=== PATIENT | male | born 1940 | race Caucasian/White ===

== ENCOUNTER 2018-11-05 08:16 | Emergency (ER) | payer MEDICARE, OTHER ==
[~2018-11-05] VITALS: Ht 177.8 cm; Wt 90.9 kg
[2018-11-05] MEDS ORDERED: LIDOcaine 2% 10ml TOPICAL JELLY (Urojet) MM ONE (08:30)
[2018-11-05 09:09] LABS: CLARITY,URINE CLEAR (Clear); COLOR,URINE YELLOW (Yellow); GLUCOSE, URINE NEGATIVE (Neg); KETONES,URINE NEGATIVE (Neg); LEUKOCYTE ESTERASE ,URINE NEGATIVE (Neg); NITRITES, URINE NEGATIVE (Neg); OCCULT BLOOD,URINE MODERATE (Neg); PH,URINE 5.5 (4.8-8.0); PROTEIN,URINE NEGATIVE (Neg)
[2018-11-05 09:13] LABS: UA COLLECTION TYPE STRAIGHT CATH
[2018-11-05 09:15] LABS: MUCUS STRANDS FEW /LPF (Neg); SQUAMOUS EPITHELIAL CELL,UR FEW /LPF (FEW)
[2018-11-05 09:16] LABS: BACTERIA,URINE FEW /HPF (Neg); RBC,URINE 50-100 /HPF (0-2); WBC,URINE 0-4 /HPF (0-4)
[2018-11-05 09:18] LABS: ANION GAP 7 (8-16); BLOOD UREA NITROGEN 17 MG/DL (7-18); BUN/CREATININE RATIO 12.9 (5.4-32.0); CALCIUM 9.1 MG/DL (8.5-10.1); CHLORIDE 108 MMOL/L (99-107); CREATININE 1.32 MG/DL (0.60-1.10); GLUCOSE 114 MG/DL (70-104); POTASSIUM 4.2 MMOL/L (3.5-5.1); SODIUM 141 MMOL/L (135-145); TOTAL CARBON DIOXIDE 25.7 MMOL/L (24-32); eGFR 52 ML/MIN
[2018-11-05 09:33] VITALS: BP 136/101
== END 2018-11-05 09:47 | disposition home or self-care (01) ==
LOC: ER 08:17
DX: R33.9 Retention of urine, unspecified (principal); Z87.442 Personal history of urinary calculi
CPT/HCPCS: 36415; 51702; 80048; 81001; 99284

== ENCOUNTER 2018-11-07 09:21 | Emergency (ER) | payer MEDICARE, OTHER ==
[~2018-11-07] VITALS: Ht 177.8 cm; Wt 93.0 kg
[2018-11-07 09:36] VITALS: BP 150/93
[2018-11-07] MEDS ORDERED: FLO0.4C PO (21:23)
== END 2018-11-07 11:05 | disposition home or self-care (01) ==
LOC: ER 09:22
DX: R31.9 Hematuria, unspecified (principal); Z46.6 Encounter for fitting and adjustment of urinary device; Z87.442 Personal history of urinary calculi
CPT/HCPCS: 99281

== ENCOUNTER 2018-11-07 19:49 | Emergency (ER) | payer MEDICARE, OTHER ==
[~2018-11-07] VITALS: Ht 177.8 cm; Wt 93.0 kg
[2018-11-07 20:45] LABS: COLOR,URINE YELLOW (Yellow); GLUCOSE, URINE NEGATIVE (Neg); KETONES,URINE TRACE mg/dl (Neg); LEUKOCYTE ESTERASE ,URINE NEGATIVE (Neg); NITRITES, URINE NEGATIVE (Neg); OCCULT BLOOD,URINE LARGE (Neg); PROTEIN,URINE NEGATIVE (Neg)
[2018-11-07 20:50] LABS: BACTERIA,URINE FEW /HPF (Neg); CLARITY,URINE SLIGHTLY CLOUDY (Clear); RBC,URINE 50-100 /HPF (0-2); SQUAMOUS EPITHELIAL CELL,UR FEW /LPF (FEW); UA COLLECTION TYPE FOLEY CATH; WBC,URINE 0-4 /HPF (0-4)
[2018-11-07 21:20] VITALS: BP 142/97
[2018-11-07] MEDS ORDERED: FLO0.4C PO (21:23)
== END 2018-11-07 21:29 | disposition home or self-care (01) ==
LOC: ER 19:49
DX: R33.9 Retention of urine, unspecified (principal); Z79.899 Other long term (current) drug therapy; Z87.442 Personal history of urinary calculi
CPT/HCPCS: 51702; 81001; 99284

== ENCOUNTER 2018-11-13 06:25 | Inpatient (IN) | payer MEDICARE, OTHER ==
[~2018-11-13] VITALS: Ht 177.8 cm; Wt 92.7 kg
[~2018-11-13 06:25] MED LIST: FLO0.4C PO
[2018-11-13] MEDS ORDERED: LIDOcaine 2% 10ml TOPICAL JELLY (Urojet) MM ONE (06:40)
[2018-11-13] MEDS ORDERED: normal saline 1000ML IV soln IV ONE ×2 (06:50→07:20)
[2018-11-13] MEDS ORDERED: CefTRIAXone 2gm/D5W 50ml 50 ML IV ONE (06:50)
[2018-11-13] MEDS ORDERED: NITR100C6 PO (07:04)
[2018-11-13] MEDS ORDERED: FINA5TAB11 PO (07:04)
[2018-11-13] MEDS ORDERED: FLUT16SP2 BOTHNARES (07:04)
[2018-11-13] MEDS ORDERED: GUAI200T5 PO (07:07)
[2018-11-13 07:11] LABS: CLARITY,URINE CLOUDY (Clear); COLOR,URINE BROWN (Yellow)
[2018-11-13 07:13] LABS: UA COLLECTION TYPE STRAIGHT CATH
[2018-11-13] MEDS ORDERED: acetaminophen 325mg tablet PO ONE (07:15)
[2018-11-13 07:17] LABS: BACTERIA,URINE 2+ /HPF (Neg); RBC,URINE TNTC /HPF (0-2); SQUAMOUS EPITHELIAL CELL,UR NONE SEEN /LPF (FEW); WBC,URINE TNTC /HPF (0-4)
[2018-11-13 07:55] LABS: PARTIAL THROMBOPLASTIN TIME 29 SECONDS (22-32)
[2018-11-13 07:57] LABS: ALANINE AMINOTRANSFERASE 30 U/L (12-78); ALBUMIN 3.7 G/DL (3.4-5.0); ALKALINE PHOSPHATASE 89 IU/L (46-116); ANION GAP 9 (8-16); ASPARTATE AMINO TRANSFERASE 25 U/L (10-37); BILIRUBIN,TOTAL 1.7 MG/DL (0.1-1.0); BLOOD UREA NITROGEN 19 MG/DL (7-18); BUN/CREATININE RATIO 13.8 (5.4-32.0); CALCIUM 8.6 MG/DL (8.5-10.1); CHLORIDE 107 MMOL/L (99-107); CREATININE 1.38 MG/DL (0.60-1.10); GLUCOSE 121 MG/DL (70-104); MAGNESIUM 1.9 MG/DL (1.5-2.4); POTASSIUM 4.1 MMOL/L (3.5-5.1); SODIUM 139 MMOL/L (135-145); TOTAL CARBON DIOXIDE 23.5 MMOL/L (24-32); TOTAL PROTEIN 7.3 G/DL (6.4-8.2); eGFR 50 ML/MIN
[2018-11-13 07:58] LABS: BASOPHILS % (AUTO) 0 % (0-1); EOSINOPHILS % (AUTO) 0.1 % (0-6); HEMATOCRIT 41.9 % (42.0-52.0); HEMOGLOBIN 14.6 g/dl (14.0-17.9); LYMPHOCYTES # (AUTO) 0.2 X10'3 (1.1-4.8); LYMPHOCYTES % (AUTO) 2.8 % (21-51); MEAN CORPUSCULAR HEMOGLOBIN 31.9 PG (27.0-31.0); MEAN CORPUSCULAR HGB CONC 34.9 g/dL (33.0-36.5); MEAN CORPUSCULAR VOLUME 91.5 FL (78-98); MONOCYTES # (AUTO) 0.1 X10'3 (0-0.9); MONOCYTES % (AUTO) 1.2 % (2-12); NEUTROPHILS % (AUTO) 95.9 % (42-75); PLATELET COUNT 130 X10'3 (140-440); RED BLOOD COUNT 4.58 X10'6 (4.70-6.10); RED CELL DISTRIBUTION WIDTH 13.2 % (11.5-14.5); WHITE BLOOD COUNT 8.4 X10'3 (4.5-11.0)
--- NOTE | 2018-11-13 08:28 | NUR ---
pt looks and states he feels much better after catheter placement. pt has been sleeping off and on. pt's shivering has stopped.
[2018-11-13] MEDS ORDERED: magnesium 2GM in 50ml NS 50 ML IV PRN (11:25)
[2018-11-13] MEDS ORDERED: magnesium 4gm in 100ml NS 100 ML IV PRN (11:25)
[2018-11-13] MEDS ORDERED: acetaminophen 325mg tablet PO PRN (11:25)
[2018-11-13] MEDS ORDERED: magnesium hydroxide 30ml (MOM) UD suspension PO PRN (11:25)
[2018-11-13] MEDS ORDERED: ondansetron/PF 4mg/2ml inj IV PRN (11:25)
[2018-11-13] MEDS ORDERED: magnesium Cl slow-release 64mg tablet PO PRN (11:25)
[2018-11-13] MEDS ORDERED: potassium CL 10mEq/100ml bag 100 ML IV PRN (11:25)
[2018-11-13] MEDS ORDERED: mag hydrox/Alum hydrox/simeth 30ml oral suspension PO PRN (11:25)
[2018-11-13] MEDS ORDERED: potassium Cl 20 mEq SR tablet PO PRN ×2 (11:25)
[2018-11-13] MEDS ORDERED: potassium Cl 40MEQ/NS 500ml 500 ML IV PRN (11:25)
[2018-11-13] MEDS: normal saline 1000ml 1,000 ML IV SCH ×2 (11:56→21:21)
--- NOTE | 2018-11-13 13:19 | NUR ---
Attempted to call report to receiving nurse but unavailable; will call back.
--- NOTE | 2018-11-13 13:25 | NUR ---
Called ED to get report. Nurse is busy with another patient. They will call back.
--- NOTE | 2018-11-13 14:10 | NUR ---
Received patient report from TATIANA Sherwood. Patient to room 349 B. BLL, VSS, call light in reach of patient. Water provided to patient. Will continue to monitor patient.
[2018-11-13 14:30] VITALS: BP_SYST 82; BP_SYST 89; BP_DIAS 44; BP_DIAS 48
--- NOTE | 2018-11-13 18:29 | NUR ---
Patient in room [facility]. I have received report from Taina SIMPSON and had the opportunity to ask questions and assume patient care.
--- NOTE | 2018-11-13 18:29 | NUR ---
Problems reprioritized. Patient report given, questions answered & plan of care reviewed with TATIANA Esteves. Patient resting comfortably and just finished eating dinner at this time. Call light and items of frequent use in reach of patient.
[2018-11-13 19:00] VITALS: BP 92/53
[2018-11-13] MEDS: guaiFENesin ER 600mg tablet PO SCH (19:22)
[2018-11-13] MEDS: heparin, porcine 5000 units/ml vial SQ SCH (19:23)
[2018-11-14] VITALS: BP 90/50
[2018-11-14] MEDS: normal saline 1000ml 1,000 ML IV SCH ×2 (04:53→16:50)
[2018-11-14 05:38] LABS: BASOPHILS % (AUTO) 0.1 % (0-1); EOSINOPHILS % (AUTO) 0 % (0-6); HEMATOCRIT 34.3 % (42.0-52.0); HEMOGLOBIN 11.6 g/dl (14.0-17.9); LYMPHOCYTES # (AUTO) 0.6 X10'3 (1.1-4.8); LYMPHOCYTES % (AUTO) 4.2 % (21-51); MEAN CORPUSCULAR HEMOGLOBIN 31.1 PG (27.0-31.0); MEAN CORPUSCULAR HGB CONC 33.7 g/dL (33.0-36.5); MEAN CORPUSCULAR VOLUME 92.4 FL (78-98); MEAN PLATELET VOLUME 8.1 FL (7.4-10.4); MONOCYTES % (AUTO) 6.3 % (2-12); NEUTROPHILS # (AUTO) 13.8 X10'3 (1.8-7.7); NEUTROPHILS % (AUTO) 89.4 % (42-75); PLATELET COUNT 113 X10'3 (140-440); RED BLOOD COUNT 3.71 X10'6 (4.70-6.10); RED CELL DISTRIBUTION WIDTH 13.4 % (11.5-14.5); WHITE BLOOD COUNT 15.4 X10'3 (4.5-11.0)
[2018-11-14 06:08] LABS: ALANINE AMINOTRANSFERASE 20 U/L (12-78); ALBUMIN 2.5 G/DL (3.4-5.0); ALBUMIN/GLOBULIN RATIO 0.8 (1.1-1.5); ALKALINE PHOSPHATASE 59 IU/L (46-116); ANION GAP 10 (8-16); ASPARTATE AMINO TRANSFERASE 30 U/L (10-37); BILIRUBIN,TOTAL 1.5 MG/DL (0.1-1.0); BLOOD UREA NITROGEN 24 MG/DL (7-18); BUN/CREATININE RATIO 15.2 (5.4-32.0); CHLORIDE 105 MMOL/L (99-107); CREATININE 1.58 MG/DL (0.60-1.10); GLUCOSE 91 MG/DL (70-104); MAGNESIUM 1.6 MG/DL (1.5-2.4); POTASSIUM 3.7 MMOL/L (3.5-5.1); SODIUM 135 MMOL/L (135-145); TOTAL CARBON DIOXIDE 20.3 MMOL/L (24-32); TOTAL PROTEIN 5.8 G/DL (6.4-8.2); eGFR 43 ML/MIN
--- NOTE | 2018-11-14 06:27 | NUR ---
Problems reprioritized. Patient report given, questions answered & plan of care reviewed with Rashaad RN.
--- NOTE | 2018-11-14 06:30 | NUR ---
Patient in room [facility]. I have received report from MARTINA SIMPSON and had the opportunity to ask questions and assume patient care.
--- NOTE | 2018-11-14 06:30 | NUR ---
Patient in room [facility]. I have received report from Danielito SIMPSON and had the opportunity to ask questions and assume patient care.
[2018-11-14 07:22] VITALS: BP 93/54
[2018-11-14 07:51] LABS: PLATELET ESTIMATE DECREASED; TOTAL CELLS COUNTED 100
[2018-11-14 07:52] LABS: TOXIC GRANULATION 1+
[2018-11-14] MEDS: K and/or MAG REPLACEMENT MC SCH (08:00)
[2018-11-14] MEDS: CefTRIAXone 2gm/D5W 50ml 50 ML IV SCH (08:31)
[2018-11-14] MEDS: tamsulosin 0.4mg capsule PO SCH (08:32)
[2018-11-14] MEDS: finasteride 5mg tablet PO SCH (08:32)
[2018-11-14] MEDS: fluticasone nasal spray 16GM bottle NS SCH (08:33)
[2018-11-14] MEDS: guaiFENesin ER 600mg tablet PO SCH ×2 (08:33→19:00)
[2018-11-14] MEDS: heparin, porcine 5000 units/ml vial SQ SCH ×2 (08:37→19:00)
[2018-11-14 11:11] VITALS: BP 90/53
[2018-11-14 18:00] VITALS: BP 102/57
--- NOTE | 2018-11-14 18:30 | NUR ---
Patient in room [facility]. I have received report from Rashaad SIMPSON and had the opportunity to ask questions and assume patient care.
--- NOTE | 2018-11-14 18:30 | NUR ---
Problems reprioritized. Patient report given, questions answered & plan of care reviewed with Danielito SIMPSON.
[2018-11-15] VITALS: BP 92/50
[2018-11-15] MEDS: normal saline 1000ml 1,000 ML IV SCH ×3 (01:36→22:35)
[2018-11-15 06:03] LABS: BASOPHILS % (AUTO) 0.2 % (0-1); EOSINOPHILS % (AUTO) 0.3 % (0-6); HEMOGLOBIN 11.7 g/dl (14.0-17.9); LYMPHOCYTES # (AUTO) 0.4 X10'3 (1.1-4.8); LYMPHOCYTES % (AUTO) 3.1 % (21-51); MEAN CORPUSCULAR HEMOGLOBIN 31.5 PG (27.0-31.0); MEAN CORPUSCULAR HGB CONC 34.4 g/dL (33.0-36.5); MEAN CORPUSCULAR VOLUME 91.4 FL (78-98); MEAN PLATELET VOLUME 8.2 FL (7.4-10.4); MONOCYTES # (AUTO) 0.6 X10'3 (0-0.9); MONOCYTES % (AUTO) 4.6 % (2-12); NEUTROPHILS # (AUTO) 12.7 X10'3 (1.8-7.7); NEUTROPHILS % (AUTO) 91.8 % (42-75); PLATELET COUNT 118 X10'3 (140-440); RED BLOOD COUNT 3.73 X10'6 (4.70-6.10); RED CELL DISTRIBUTION WIDTH 13.2 % (11.5-14.5); WHITE BLOOD COUNT 13.8 X10'3 (4.5-11.0)
[2018-11-15 06:22] LABS: ALANINE AMINOTRANSFERASE 25 U/L (12-78); ALBUMIN 2.2 G/DL (3.4-5.0); ALBUMIN/GLOBULIN RATIO 0.6 (1.1-1.5); ALKALINE PHOSPHATASE 62 IU/L (46-116); ANION GAP 8 (8-16); ASPARTATE AMINO TRANSFERASE 34 U/L (10-37); BLOOD UREA NITROGEN 20 MG/DL (7-18); BUN/CREATININE RATIO 15.7 (5.4-32.0); CALCIUM 7.9 MG/DL (8.5-10.1); CHLORIDE 108 MMOL/L (99-107); CREATININE 1.27 MG/DL (0.60-1.10); GLUCOSE 97 MG/DL (70-104); MAGNESIUM 1.9 MG/DL (1.5-2.4); POTASSIUM 3.8 MMOL/L (3.5-5.1); SODIUM 137 MMOL/L (135-145); TOTAL CARBON DIOXIDE 21.3 MMOL/L (24-32); TOTAL PROTEIN 5.7 G/DL (6.4-8.2); eGFR 55 ML/MIN
--- NOTE | 2018-11-15 06:30 | NUR ---
Patient in room [facility]. I have received report from Danielito SIMPSON and had the opportunity to ask questions and assume patient care.
--- NOTE | 2018-11-15 06:43 | NUR ---
Problems reprioritized. Patient report given, questions answered & plan of care reviewed with ansley rn.
[2018-11-15 07:19] VITALS: BP 108/60
[2018-11-15] MEDS: tamsulosin 0.4mg capsule PO SCH (07:56)
[2018-11-15] MEDS: finasteride 5mg tablet PO SCH (07:56)
[2018-11-15] MEDS: guaiFENesin ER 600mg tablet PO SCH ×2 (07:58→19:16)
[2018-11-15] MEDS: CefTRIAXone 2gm/D5W 50ml 50 ML IV SCH (07:59)
[2018-11-15] MEDS: fluticasone nasal spray 16GM bottle NS SCH (08:00)
[2018-11-15] MEDS: K and/or MAG REPLACEMENT MC SCH (08:00)
[2018-11-15] MEDS: heparin, porcine 5000 units/ml vial SQ SCH ×2 (08:02→19:16)
[2018-11-15 11:00] VITALS: BP 117/70
[2018-11-15] MEDS: cefepime 2g/NS 100ml ADVANTAGE 100 ML IV SCH ×2 (15:15→22:31)
[2018-11-15 18:00] VITALS: BP 99/55
--- NOTE | 2018-11-15 18:30 | NUR ---
Problems reprioritized. Patient report given, questions answered & plan of care reviewed with Danielito SIMPSON.
--- NOTE | 2018-11-15 18:30 | NUR ---
Patient in room [facility]. I have received report from Rashaad SIMPSON and had the opportunity to ask questions and assume patient care.
[2018-11-16] VITALS: BP 103/51
[2018-11-16 05:12] LABS: BASOPHILS % (AUTO) 0.2 % (0-1); EOSINOPHILS # (AUTO) 0.1 X10'3 (0-0.9); EOSINOPHILS % (AUTO) 0.7 % (0-6); HEMATOCRIT 32.8 % (42.0-52.0); HEMOGLOBIN 11.7 g/dl (14.0-17.9); LYMPHOCYTES # (AUTO) 0.6 X10'3 (1.1-4.8); LYMPHOCYTES % (AUTO) 5.4 % (21-51); MEAN CORPUSCULAR HEMOGLOBIN 32.4 PG (27.0-31.0); MEAN CORPUSCULAR HGB CONC 35.6 g/dL (33.0-36.5); MEAN CORPUSCULAR VOLUME 90.8 FL (78-98); MEAN PLATELET VOLUME 8.2 FL (7.4-10.4); MONOCYTES # (AUTO) 0.7 X10'3 (0-0.9); MONOCYTES % (AUTO) 6.2 % (2-12); NEUTROPHILS # (AUTO) 9.3 X10'3 (1.8-7.7); NEUTROPHILS % (AUTO) 87.5 % (42-75); PLATELET COUNT 116 X10'3 (140-440); RED BLOOD COUNT 3.61 X10'6 (4.70-6.10); RED CELL DISTRIBUTION WIDTH 13.2 % (11.5-14.5); WHITE BLOOD COUNT 10.6 X10'3 (4.5-11.0)
[2018-11-16 05:29] LABS: ALANINE AMINOTRANSFERASE 52 U/L (12-78); ALBUMIN 2.2 G/DL (3.4-5.0); ALBUMIN/GLOBULIN RATIO 0.6 (1.1-1.5); ALKALINE PHOSPHATASE 62 IU/L (46-116); ANION GAP 8 (8-16); ASPARTATE AMINO TRANSFERASE 54 U/L (10-37); BLOOD UREA NITROGEN 18 MG/DL (7-18); BUN/CREATININE RATIO 15.5 (5.4-32.0); CALCIUM 7.7 MG/DL (8.5-10.1); CHLORIDE 107 MMOL/L (99-107); CREATININE 1.16 MG/DL (0.60-1.10); GLUCOSE 95 MG/DL (70-104); MAGNESIUM 1.9 MG/DL (1.5-2.4); POTASSIUM 3.4 MMOL/L (3.5-5.1); SODIUM 137 MMOL/L (135-145); TOTAL CARBON DIOXIDE 21.8 MMOL/L (24-32); TOTAL PROTEIN 5.6 G/DL (6.4-8.2); eGFR 61 ML/MIN
--- NOTE | 2018-11-16 06:30 | NUR ---
Patient discharge teaching was done with patient in consisted of medication change, education on new medication. Patient also was educated on ray catheter care and educated on the changing bags from night to day. Patient verbally expressed understanding that he is supposed to follow up with Dr. Storey for a urology appointment. Patient IV sited was taken out at time of discharge and canula was whole and intacted upon inspections. Patient was transported home via private vehicle.
--- NOTE | 2018-11-16 06:45 | NUR ---
Problems reprioritized. Patient report given, questions answered & plan of care reviewed with Rashaad RN.
[2018-11-16 07:37] VITALS: BP 122/63
[2018-11-16] MEDS: K and/or MAG REPLACEMENT MC SCH (08:00)
[2018-11-16] MEDS: finasteride 5mg tablet PO SCH (09:19)
[2018-11-16] MEDS: tamsulosin 0.4mg capsule PO SCH (09:19)
[2018-11-16] MEDS: guaiFENesin ER 600mg tablet PO SCH (09:19)
[2018-11-16] MEDS: cefepime 2g/NS 100ml ADVANTAGE 100 ML IV SCH (09:21)
[2018-11-16] MEDS: fluticasone nasal spray 16GM bottle NS SCH (09:24)
[2018-11-16] MEDS: heparin, porcine 5000 units/ml vial SQ SCH (09:25)
[2018-11-16 11:00] VITALS: BP 118/85
[2018-11-16] MEDS ORDERED: LEVO750T21 PO (12:13)
== END 2018-11-16 13:20 | disposition home or self-care (01) | DRG 872 ==
LOC: ER 06:26 → SUR 3N 13:42
PROVIDERS: ADMIT Internal Medicine; ATTEND Internal Medicine
DX: A41.52 Sepsis due to Pseudomonas (principal); N10 Acute pyelonephritis; N17.9 Acute kidney failure, unspecified; N40.1 Benign prostatic hyperplasia with lower urinary tract symptoms; R33.8 Other retention of urine; Z60.2 Problems related to living alone; B96.5 Pseudomonas (aeruginosa) (mallei) (pseudomallei) as the cause of diseases classified elsewhere; Z87.442 Personal history of urinary calculi; Z79.899 Other long term (current) drug therapy
CPT/HCPCS: 36415; 71045; 74176; 80053; 81001; 83605; 83735; 84145; 85025; 85610; 85730; 87040; 87070; 87077; 87088; 87186; 93005; 93306; 96361; 96365; 97116; 97161; 97530; 99285; G0378; J0692; J0696; J1644; J7030

== ENCOUNTER 2020-12-07 13:10 | Emergency (ER) | payer MEDICARE, OTHER ==
[~2020-12-07] VITALS: Ht 177.8 cm; Wt 88.6 kg
[~2020-12-07 13:10] MED LIST changes: +FINA5TAB11 PO; -FLO0.4C PO; +FLUT16SP2 BOTHNARES; +GUAI200T5 PO; +PROCHC RC
[2020-12-07] MEDS ORDERED: normal saline 1000ML IV soln IV ONE (13:45)
[2020-12-07 14:24] LABS: BASOPHILS % (AUTO) 0.1 % (0-1); EOSINOPHILS # (AUTO) 0.1 X10'3 (0-0.9); HEMATOCRIT 35.9 % (42.0-52.0); HEMOGLOBIN 12.5 g/dl (14.0-17.9); LYMPHOCYTES # (AUTO) 0.5 X10'3 (1.1-4.8); LYMPHOCYTES % (AUTO) 5.2 % (21-51); MEAN CORPUSCULAR HEMOGLOBIN 33.3 PG (27.0-31.0); MEAN CORPUSCULAR HGB CONC 34.7 g/dL (33.0-36.5); MEAN CORPUSCULAR VOLUME 95.9 FL (78-98); MEAN PLATELET VOLUME 7.6 FL (7.4-10.4); MONOCYTES # (AUTO) 0.7 X10'3 (0-0.9); MONOCYTES % (AUTO) 6.6 % (2-12); NEUTROPHILS # (AUTO) 8.8 X10'3 (1.8-7.7); NEUTROPHILS % (AUTO) 87.1 % (42-75); PLATELET COUNT 179 X10'3 (140-440); RED BLOOD COUNT 3.75 X10'6 (4.70-6.10); RED CELL DISTRIBUTION WIDTH 13.5 % (11.5-14.5); WHITE BLOOD COUNT 10.1 X10'3 (4.5-11.0)
[2020-12-07 14:37] LABS: ALANINE AMINOTRANSFERASE 162 U/L (12-78); ALBUMIN 2.8 G/DL (3.4-5.0); ALBUMIN/GLOBULIN RATIO 0.7 (1.1-1.5); ALKALINE PHOSPHATASE 94 IU/L (46-116); ANION GAP 12 (8-16); ASPARTATE AMINO TRANSFERASE 102 U/L (10-37); BILIRUBIN,TOTAL 2.9 MG/DL (0.1-1.0); BLOOD UREA NITROGEN 18 MG/DL (7-18); BUN/CREATININE RATIO 14.3 (5.4-32.0); C-REACTIVE PROTEIN 15.27 MG/DL (0.0-0.5); CALCIUM 8.4 MG/DL (8.5-10.1); CHLORIDE 100 MMOL/L (99-107); CREATININE 1.26 MG/DL (0.60-1.10); GLUCOSE 102 MG/DL (70-104); POTASSIUM 3.7 MMOL/L (3.5-5.1); SODIUM 134 MMOL/L (135-145); TOTAL CARBON DIOXIDE 21.7 MMOL/L (24-32); TOTAL PROTEIN 7.1 G/DL (6.4-8.2); eGFR 55 ML/MIN
[2020-12-07 15:32] LABS: LIPASE 123 U/L (73-393)
[2020-12-07] MEDS ORDERED: CefTRIAXone 2gm/D5W 50ml BAG 50 ML IV ONE (15:40)
[2020-12-07] MEDS ORDERED: ipratropium/albuterol 3ml nebule NEB ONE (15:40)
[2020-12-07] MEDS ORDERED: methylPREDNISolone sod succ 125mg/2ml vial IV ONE (15:40)
[2020-12-07] MEDS ORDERED: azithromycin/NS 500mg/250ml 250 ML IV ONE (15:40)
[2020-12-07 16:29] LABS: CLARITY,URINE CLEAR (Clear); GLUCOSE, URINE NEGATIVE (Neg); KETONES,URINE TRACE mg/dl (Neg); LEUKOCYTE ESTERASE ,URINE NEGATIVE (Neg); NITRITES, URINE NEGATIVE (Neg); OCCULT BLOOD,URINE SMALL (Neg); PH,URINE 5.5 (4.8-8.0); PROTEIN,URINE 30 mg/dl (Neg)
[2020-12-07] MEDS ORDERED: AMOX250C PO (16:44)
[2020-12-07] MEDS ORDERED: FLO0.4C PO (16:52)
[2020-12-07 16:53] LABS: COLOR,URINE DARK YELLOW (Yellow); UA COLLECTION TYPE URINAL
[2020-12-07 16:54] LABS: BACTERIA,URINE NONE SEEN /HPF (Neg); RBC,URINE 0-2 /HPF (0-2); SQUAMOUS EPITHELIAL CELL,UR FEW /LPF (FEW); WBC,URINE 0-4 /HPF (0-4)
[2020-12-07 17:30] VITALS: BP 107/51
[2020-12-07] MEDS ORDERED: magnesium 2GM in 50ml NS 50 ML IV PRN (17:55)
[2020-12-07] MEDS ORDERED: albuterol 2.5 MG/3 ML nebule NEB PRN (17:55)
[2020-12-07] MEDS ORDERED: normal saline 1000ml 1,000 ML IV SCH (17:55)
[2020-12-07] MEDS ORDERED: potassium Cl 20 mEq SR tablet PO PRN ×2 (17:55)
[2020-12-07] MEDS ORDERED: acetaminophen 325mg tablet PO PRN (17:55)
[2020-12-07] MEDS ORDERED: ipratropium/albuterol 3ml nebule NEB PRN (17:55)
[2020-12-07] MEDS ORDERED: magnesium 4gm in 100ml NS 100 ML IV PRN (17:55)
[2020-12-07] MEDS ORDERED: ondansetron/PF 4mg/2ml inj IV PRN (17:55)
[2020-12-07] MEDS ORDERED: mag hydrox/Alum hydrox/simeth 30ml oral suspension PO PRN (17:55)
[2020-12-07] MEDS ORDERED: magnesium hydroxide 30ml (MOM) UD suspension PO PRN (17:55)
[2020-12-07] MEDS ORDERED: potassium Cl 40MEQ/1/2NS 520ml 520 ML IV PRN ×2 (17:55)
[2020-12-07] MEDS ORDERED: AZIT-63 PO (18:52)
[2020-12-07] MEDS ORDERED: K and/or MAG REPLACEMENT MC SCH (20:00)
[2020-12-07] MEDS ORDERED: enoxaparin 40mg/0.4ml syringe SQ SCH (20:00)
[2020-12-07] MEDS ORDERED: tamsulosin 0.4mg capsule PO SCH (21:00)
[2020-12-08] MEDS ORDERED: azithromycin 250mg tablet PO SCH (08:00)
[2020-12-08] MEDS ORDERED: CefTRIAXone/D5W-Rocephin 1gm 50 ML IV SCH (08:00)
[2020-12-08] MEDS ORDERED: finasteride 5mg tablet PO SCH (08:00)
== END 2020-12-07 19:21 | disposition left against medical advice (07) ==
LOC: ER 13:11 → UNDOADMIN 17:51 → ED HOLD 17:51 → UNDODISIN 19:20
DX: J96.00 Acute respiratory failure, unspecified whether with hypoxia or hypercapnia (principal); Z20.822 Contact with and (suspected) exposure to COVID-19; J18.9 Pneumonia, unspecified organism; G93.41 Metabolic encephalopathy; R50.9 Fever, unspecified; R05 Cough; R53.1 Weakness; Z87.442 Personal history of urinary calculi; Z79.2 Long term (current) use of antibiotics; Z79.899 Other long term (current) drug therapy
CPT/HCPCS: 36415; 71045; 76700; 80053; 81001; 83605; 83690; 83880; 84145; 84484; 85025; 86140; 87040; 87635; 93005; 94640; 96365; 96368; 96375; 99285; C9803; J0456; J0696; J2930; J7030; 94760; 96374; G0378

== ENCOUNTER 2021-07-27 09:25 | Emergency (ER) | payer MEDICARE, OTHER ==
[~2021-07-27] VITALS: Ht 177.8 cm; Wt 90.9 kg
[~2021-07-27 09:25] MED LIST changes: +AMOX250C PO; +FLO0.4C PO; -GUAI200T5 PO; -PROCHC RC
[2021-07-27 09:38] VITALS: BP 111/80
[2021-07-27] MEDS ORDERED: CHOL10006 PO (10:07)
[2021-07-27] MEDS ORDERED: ZINC50TA67 PO (10:09)
[2021-07-27] MEDS ORDERED: ALBU6.7H9 INH (11:18)
[2021-07-27] MEDS ORDERED: NIRM1TAB PO (11:18)
== END 2021-07-27 12:46 | disposition home or self-care (01) ==
LOC: ER 09:26
DX: U07.1 COVID-19 (principal); R53.1 Weakness; R05.9 Cough, unspecified; R51.9 Headache, unspecified; Z87.442 Personal history of urinary calculi; Z79.899 Other long term (current) drug therapy
CPT/HCPCS: 71045; 87635; 99284; C9803

== ENCOUNTER 2021-07-31 10:34 | Emergency (ER) | payer MEDICARE, OTHER ==
[~2021-07-31] VITALS: Ht 177.8 cm; Wt 90.0 kg
[~2021-07-31 10:34] MED LIST changes: +ALBU6.7H9 INH; -AMOX250C PO; +CHOL10006 PO; -FLO0.4C PO; -FLUT16SP2 BOTHNARES; +NIRM1TAB PO; +ZINC50TA67 PO
[2021-07-31 10:49] VITALS: BP 119/80
--- NOTE | 2021-07-31 11:48 | NUR ---
pt dc'd home by provider
== END 2021-07-31 12:21 | disposition home or self-care (01) ==
LOC: ER 10:35
DX: U07.1 COVID-19 (principal); R43.2 Parageusia; Z87.442 Personal history of urinary calculi; Z91.041 Radiographic dye allergy status; Z79.899 Other long term (current) drug therapy
CPT/HCPCS: 99281

== ENCOUNTER 2021-08-09 07:14 | Emergency (ER) | payer MEDICARE, OTHER ==
[~2021-08-09] VITALS: Ht 177.8 cm; Wt 90.9 kg
--- NOTE | 2021-08-09 07:41 | NUR ---
RECEIVED VO FOR CHEST X-RAY BY MD TINOCO.
[2021-08-09 09:11] LABS: BASOPHILS % (AUTO) 0.5 % (0-1); EOSINOPHILS # (AUTO) 0.1 X10'3 (0-0.9); EOSINOPHILS % (AUTO) 1.6 % (0-6); HEMATOCRIT 39.7 % (42.0-52.0); HEMOGLOBIN 13.4 g/dl (14.0-17.9); LYMPHOCYTES # (AUTO) 0.9 X10'3 (1.1-4.8); LYMPHOCYTES % (AUTO) 13.7 % (21-51); MEAN CORPUSCULAR HEMOGLOBIN 30.9 PG (27.0-31.0); MEAN CORPUSCULAR HGB CONC 33.7 g/dL (33.0-36.5); MEAN CORPUSCULAR VOLUME 91.8 FL (78-98); MEAN PLATELET VOLUME 7.6 FL (7.4-10.4); MONOCYTES # (AUTO) 0.7 X10'3 (0-0.9); NEUTROPHILS # (AUTO) 4.8 X10'3 (1.8-7.7); NEUTROPHILS % (AUTO) 73.2 % (42-75); PLATELET COUNT 227 X10'3 (140-440); RED BLOOD COUNT 4.33 X10'6 (4.70-6.10); RED CELL DISTRIBUTION WIDTH 12.6 % (11.5-14.5); WHITE BLOOD COUNT 6.5 X10'3 (4.5-11.0)
[2021-08-09 09:19] LABS: D-DIMER 1.84 MG/L FEU (0-0.50)
[2021-08-09 09:23] LABS: ALANINE AMINOTRANSFERASE 76 U/L (12-78); ALBUMIN 3.3 G/DL (3.4-5.0); ALBUMIN/GLOBULIN RATIO 0.8 (1.1-1.5); ALKALINE PHOSPHATASE 67 IU/L (46-116); ANION GAP 9 (8-16); ASPARTATE AMINO TRANSFERASE 32 U/L (10-37); BILIRUBIN,TOTAL 1.1 MG/DL (0.1-1.0); BLOOD UREA NITROGEN 20 MG/DL (7-18); BUN/CREATININE RATIO 17.7 (5.4-32.0); CALCIUM 9.1 MG/DL (8.5-10.1); CHLORIDE 107 MMOL/L (99-107); CREATININE 1.13 MG/DL (0.60-1.10); GLUCOSE 94 MG/DL (70-104); POTASSIUM 4.4 MMOL/L (3.5-5.1); SODIUM 139 MMOL/L (135-145); TOTAL CARBON DIOXIDE 23.3 MMOL/L (24-32); TOTAL PROTEIN 7.4 G/DL (6.4-8.2); eGFR 62 ML/MIN
[2021-08-09] MEDS ORDERED: normal saline 1000ML IV soln IVB ONE (10:05)
[2021-08-09] MEDS ORDERED: methylPREDNISolone sod succ 125mg/2ml vial IV ONE (10:20)
[2021-08-09] MEDS ORDERED: iohexol 350MG/ML 100ml bottle IV ONE (10:29)
--- NOTE | 2021-08-09 11:07 | NUR ---
PT REPORTS UNKNOWN POSSIBLE ALLERGY TO IV DYE BACK 50+ YEARS AGO BUT UNABLE TO REPORT WHAT REACTION HE HAD. PT PRE MEDICATED PRIOR TO CTA AND PT TAKEN WITH RN AND MONITOR. PT TOLERATED PROCEEDURE AND REMAINS STABLE WITH O2 SATS OF97-99% ON RA AND DENIES SXS. WILL CONTINUE TO MONITOR.
[2021-08-09 12:08] VITALS: BP 124/81
== END 2021-08-09 12:04 | disposition home or self-care (01) ==
LOC: ER 07:14
DX: U09.9 Post COVID-19 condition, unspecified (principal); M54.89 Other dorsalgia; R05.9 Cough, unspecified; Z87.442 Personal history of urinary calculi; Z79.899 Other long term (current) drug therapy
CPT/HCPCS: 36415; 71045; 71275; 80053; 83880; 85025; 85379; 96374; 99285; J2930; J7030; Q9967

== ENCOUNTER 2023-10-19 07:59 | Emergency (ER) | payer MEDICARE, OTHER ==
[~2023-10-19] VITALS: Ht 177.8 cm; Wt 94.9 kg
[~2023-10-19 07:59] MED LIST changes: +ALBU6.7H14 INH; -ALBU6.7H9 INH
[2023-10-19] MEDS ORDERED: LIDOcaine 2% 10ml TOPICAL JELLY (Urojet) TP ONE (08:30)
[2023-10-19 09:02] LABS: BILIRUBIN,URINE NEGATIVE (Neg); CLARITY,URINE CLEAR (Clear); COLOR,URINE STRAW (Yellow); GLUCOSE, URINE NEGATIVE (Neg); KETONES,URINE NEGATIVE (Neg); LEUKOCYTE ESTERASE ,URINE NEGATIVE (Neg); NITRITES, URINE NEGATIVE (Neg); OCCULT BLOOD,URINE MODERATE (Neg); PH,URINE 6.5 (4.8-8.0); PROTEIN,URINE NEGATIVE (Neg)
[2023-10-19] MEDS: LidoCAINE 2% Topical Jelly 11mL syringe (UROJET) TOP ONE (09:06)
[2023-10-19 09:10] LABS: UA COLLECTION TYPE FOLEY CATH
[2023-10-19 09:11] LABS: SQUAMOUS EPITHELIAL CELL,UR FEW /LPF (FEW)
[2023-10-19] MEDS ORDERED: FLO0.4C PO (09:11)
[2023-10-19 09:12] LABS: BACTERIA,URINE FEW /HPF (Neg); RBC,URINE 20-50 /HPF (0-2); WBC,URINE 0-4 /HPF (0-4)
[2023-10-19 09:29] VITALS: BP 119/80; PULSE 72; RESP 16; TEMP 98.4; O2SAT 95
== END 2023-10-19 09:30 | disposition home or self-care (01) ==
LOC: ER 07:59
DX: R30.9 Painful micturition, unspecified (principal); Z79.899 Other long term (current) drug therapy
CPT/HCPCS: 51702; 81001; 99284; A4314; A4358

== ENCOUNTER 2023-11-26 12:44 | Emergency (ER) | payer MEDICARE, OTHER ==
[~2023-11-26] VITALS: Ht 177.8 cm; Wt 90.9 kg
[2023-11-26 14:08] LABS: BASOPHILS % (AUTO) 0.4 % (0-1); EOSINOPHILS % (AUTO) 0.4 % (0-6); HEMATOCRIT 44.1 % (42.0-52.0); LYMPHOCYTES # (AUTO) 0.8 X10'3 (1.1-4.8); LYMPHOCYTES % (AUTO) 8.6 % (21-51); MEAN CORPUSCULAR HEMOGLOBIN 31.1 PG (27.0-31.0); MEAN CORPUSCULAR VOLUME 91.3 FL (78-98); MONOCYTES # (AUTO) 0.3 X10'3 (0-0.9); NEUTROPHILS # (AUTO) 8.4 X10'3 (1.8-7.7); NEUTROPHILS % (AUTO) 87.6 % (42-75); PLATELET COUNT 175 X10'3 (140-440); RED BLOOD COUNT 4.83 X10'6 (4.70-6.10); RED CELL DISTRIBUTION WIDTH 13.4 % (11.5-14.5); WHITE BLOOD COUNT 9.6 X10'3 (4.5-11.0)
[2023-11-26 14:19] LABS: ALANINE AMINOTRANSFERASE 35 U/L (12-78); ALBUMIN 4.1 G/DL (3.4-5.0); ALKALINE PHOSPHATASE 101 IU/L (46-116); ANION GAP 12 (8-16); ASPARTATE AMINO TRANSFERASE 26 U/L (10-37); BILIRUBIN,TOTAL 1.1 MG/DL (0.1-1.0); BLOOD UREA NITROGEN 16 MG/DL (7-18); CALCIUM 9.3 MG/DL (8.5-10.1); CHLORIDE 105 MMOL/L (99-107); CREATININE 1.45 MG/DL (0.60-1.10); GLUCOSE 143 MG/DL (70-104); LIPASE 51 U/L (16-77); POTASSIUM 4.1 MMOL/L (3.5-5.1); SODIUM 139 MMOL/L (135-145); TOTAL CARBON DIOXIDE 22.1 MMOL/L (24-32); TOTAL PROTEIN 8.1 G/DL (6.4-8.2); eCRCL 40 ML/MIN; eGFR 46 ML/MIN
[2023-11-26] MEDS ORDERED: LIDO30CR TOP (15:44)
[2023-11-26] MEDS ORDERED: HYDR25SU32 RC (15:44)
[2023-11-26] MEDS: LidoCAINE 2% Topical Jelly 11mL syringe (UROJET) TOP ONE (15:56)
[2023-11-26 16:11] LABS: BILIRUBIN,URINE NEGATIVE (Neg); CLARITY,URINE CLEAR (Clear); COLOR,URINE YELLOW (Yellow); GLUCOSE, URINE NEGATIVE (Neg); KETONES,URINE NEGATIVE (Neg); LEUKOCYTE ESTERASE ,URINE NEGATIVE (Neg); NITRITES, URINE NEGATIVE (Neg); OCCULT BLOOD,URINE LARGE (Neg); PROTEIN,URINE NEGATIVE (Neg); UROBILINOGEN,URINE 0.2 E.U/dL (0.2-1.0)
[2023-11-26 16:28] LABS: UA COLLECTION TYPE OTHER
[2023-11-26 16:29] LABS: RBC,URINE TNTC /HPF (0-2); SQUAMOUS EPITHELIAL CELL,UR FEW /LPF (FEW)
[2023-11-26 16:30] LABS: BACTERIA,URINE NONE SEEN /HPF (Neg); CAL OXALATE CRYSTALS 2+ /HPF (NEGATIVE); WBC,URINE 0-4 /HPF (0-4)
[2023-11-26 17:35] VITALS: BP 173/81; PULSE 86; RESP 16; TEMP 96.8; O2SAT 95
== END 2023-11-26 17:36 | disposition home or self-care (01) ==
LOC: ER 12:45
DX: K64.8 Other hemorrhoids (principal); R33.9 Retention of urine, unspecified; Z79.899 Other long term (current) drug therapy; Z87.442 Personal history of urinary calculi
CPT/HCPCS: 36415; 51702; 80053; 81001; 83690; 85025; 99284; A4314; A4340; A4358